=== PATIENT | female | born 1950 | race Caucasian/White ===

== ENCOUNTER → 2016-09-14 | Outpatient (CLI) | payer OTHER | LOC: BMCIMAGING 16:41 | PROVIDERS: ATTEND Internal Medicine | DX: J40 Bronchitis, not specified as acute or chronic (principal) ==

== ENCOUNTER → 2016-12-25 | Outpatient (CLI) | payer OTHER | LOC: FIMAGING 08:50 | DX: Z12.31 Encounter for screening mammogram for malignant neoplasm of breast (principal) | CPT/HCPCS: G0202 ==

== ENCOUNTER 2017-04-30 17:38 | Emergency (ER) | payer OTHER ==
--- NOTE | 2017-04-30 18:34 | EDPHY ---
H & P Time Seen by Provider: 04/30/17 17:58 HPI/ROS: HPI Right wrist injury. 67-year-old female by private vehicle with her . This patient reports that she slipped and fell forward trapping her right wrist underneath her chest wall as she fell to the ground. She is left-hand dominant. She complains of isolated ulnar aspect right wrist pain. She did not hit her pain head. She denies any neck pain. No loss of sensation or weakness in her extremities. She denies any other significant complaint. ROS: Constitutional: No fever, no chills. No weakness. Respiratory: No cough. No shortness of breath. Cardiac: No chest pain, no palpitations. Gastrointestinal: No abdominal pain. Genitourinary: No hematuria. No dysuria or increased frequency with urination. Musculoskeletal: No back pain. No neck pain. As above. No other extremity pain. Skin: No lacerations or abrasions. Neurological: No headache. No focal weakness or altered sensation. Past medical history: Hypertension. She takes metoprolol. Social history: Nonsmoker. No alcohol. Here with her . Physical Exam: General Appearance: Alert, no distress. This patient is responding to questions appropriately and in full sentences. This patient appears well- hydrated and well-nourished. Head: Normocephalic atraumatic. Face: Facial bones are stable on palpation. Eyes: Pupils equal and round and reactive to light, no pallor or injection. No lid erythema or edema. Chest wall is stable to AP and lateral palpation. Neurological: Motor sensory function is intact. Cranial nerves are normal. Cerebellar function intact. Skin: Warm and dry, no rashes. No lacerations, abrasions or contusions. Musculoskeletal: Neck is supple and nontender. The trachea is midline. No midline cervical, thoracic, lumbar or sacral tenderness on palpation. No flank tenderness on palpation. Right upper extremity/wrist examination. She has a small hematoma over dorsal proximal aspect 2nd and 3rd metacarpals. She also has some tenderness on palpation over the dorsal aspect ulnar metacarpals 4 and 5, no snuffbox tenderness. No pain elicited by axial compression of her thumb or other 4 digits. There is no bony step-off or deformity or crepitus noted on palpation of the bony aspects of the hand and wrist. Right hand is neurovascularly intact. Right elbow joint left shoulder range without any pain or impingement. Extremities are symmetrical, full range of motion except noted. All joints in the bilateral upper and bilateral lower extremities range without pain or impingement except noted. No tenderness on palpation of the long bones in the bilateral upper and bilateral lower extremities except noted. Psychiatric: No agitation. No depression. Database: EKG: Imaging: Right hand x-ray series: Negative for fracture, subluxation, dislocation. Interpreted by me. Procedures: Emergency department course: Patient declines pain medication at this time. X-rays of the right wrist taken reviewed by myself. 6:30 p.m., patient re-evaluated. Results of x-rays and diagnosis discussed with her. We will treat this as a wrist sprain. She was placed in a Velcro wrist splint. Will have her follow up with Orthopedics in 2-3 days for re- evaluation. If she is still having pain or discomfort in a week to 10 days x- rays will be repeated. She feels comfortable with this plan. Follow-up and return to emergency department precautions reviewed with her and her . All of their questions were answered. She was discharged in good condition. Differential Diagnosis: The differential diagnosis on this patient includes but is not limited to sprain of the right wrist. Fracture, subluxation, dislocation of the right wrist unlikely. This represents a partial list of diagnoses considered. These considerations are based on history, physical exam, past history, reassessment and diagnostic testing. Smoking Status: Never smoked Constitutional: Initial Vital Signs Temperature (C) 36.9 C 04/30/17 17:44 Heart Rate 92 04/30/17 17:44 Respiratory Rate 16 04/30/17 17:44 Blood Pressure 156/90 H 04/30/17 17:44 O2 Sat (%) 94 04/30/17 17:44 O2 Delivery Mode Room Air Allergies/Adverse Reactions: No Known Allergies Allergy (Unverified 04/30/17 17:41) Home Medications: Medication Instructions Recorded Metoprolol Tartrate 04/30/17 Medical Decision Making - Diagnostics Imaging Results: Imaging Impressions Wrist X-Ray 04/30/17 17:46 Impression: Nothing acute. Departure - Departure Disposition: Home, Routine, Self-Care Clinical Impression: Sprain of right wrist Condition: Good Instructions: Wrist Sprain (ED) Additional Instructions: Read and follow provided instructions. Follow-up with your primary care physician or hardwood flooring specialist in 2-3 days for re-evaluation. If you are still having pain to the right wrist in 7-10 days your x-ray should be repeated. Take medication as prescribed. Return to the emergency department for worsening pain, discoloration, swelling or other serious concerns. Referrals: Shiela Diaz MD [Primary Care Provider] - As per Instructions Isiah Alicea MD [Medical Doctor] - As per Instructions
[2017-04-30 18:45] VITALS: BP 156/70; PULSE 95; RESP 18; TEMP 98.2; O2SAT 95
== END 2017-04-30 18:49 | disposition home or self-care (01) ==
DX: S63.501A Unspecified sprain of right wrist, initial encounter (principal); I10 Essential (primary) hypertension; W01.198A Fall on same level from slipping, tripping and stumbling with subsequent striking against other object, initial encounter
CPT/HCPCS: 73110; 99283; L3807

== ENCOUNTER → 2017-05-03 | Outpatient (CLI) | payer OTHER | LOC: BMCIMAGING 12:07 | PROVIDERS: ATTEND Podiatrist Foot & Ankle Surgery | DX: M25.572 Pain in left ankle and joints of left foot (principal) ==

== ENCOUNTER → 2017-05-25 | Outpatient (CLI) | payer OTHER | LOC: FIMAGING 16:00 | PROVIDERS: ATTEND Podiatrist Foot & Ankle Surgery | DX: M25.372 Other instability, left ankle (principal); M85.862 Other specified disorders of bone density and structure, left lower leg ==

== ENCOUNTER → 2017-06-13 | Outpatient (CLI) | payer OTHER | LOC: FIMAGING 14:58 | PROVIDERS: ATTEND Podiatrist Foot & Ankle Surgery | DX: Z13.820 Encounter for screening for osteoporosis (principal); M81.0 Age-related osteoporosis without current pathological fracture ==

== ENCOUNTER → 2018-03-18 | Outpatient (CLI) | payer OTHER | LOC: FIMAGING 15:01 | PROVIDERS: ATTEND Internal Medicine | DX: Z12.31 Encounter for screening mammogram for malignant neoplasm of breast (principal) ==

== ENCOUNTER → 2018-04-10 | Outpatient (CLI) | payer OTHER | LOC: FIMAGING 08:13 | PROVIDERS: ATTEND Internal Medicine | DX: E04.1 Nontoxic single thyroid nodule (principal) ==

== ENCOUNTER → 2018-04-15 | Outpatient (CLI) | payer OTHER ==
[~2018-04-15] MED LIST: LIDOCAINE 1% 300 MG/30 ML SDV ONE
== END ==
LOC: FIMAGING 08:25
PROVIDERS: ATTEND Internal Medicine
PROC: 0GBG3ZX Excision of Left Thyroid Gland Lobe, Percutaneous Approach, Diagnostic (ICD-10-PCS; principal; 2018-04-15)
DX: E04.1 Nontoxic single thyroid nodule (principal)